=== PATIENT | female | born 1980 | race Caucasian/White ===

== ENCOUNTER 2016-07-05 22:55 | Emergency (ER) | payer MEDICAID ==
[~2016-07-05] VITALS: Ht 162.6 cm; Wt 100.0 kg
[~2016-07-05 22:55] MED LIST: AMOXICILLIN500 MG OR; AMOXICILLIN500 MG PO; ANUSOL HC25 MG RE; BACK & BODY EXT1 TAB PO; BENADRY2 EX; CEPHALEXIN500 MG PO; CIPRO250 MG PO; CIPRO500 MG; CIPRO500 MG OR; CIPROFLOXACN500 MG PO; DOXYCYC MONO100 M1 PO; FIORICE1 PO; FISH OIL1000 MG; FLAGYL500 MG PO; FLEXERIL OR; KEFLEX500 MG PO; LOMOTIL2.5 MG PO; LORTAB 10 PO; MEDDOSEPAK PO; MUPIROCIN2 % TOP; NO; NORCO1 TA2 PO; OMEPRAZOLE10 MG PO; OMEPRAZOLE20 M2 PO; ONDANSETRON4 MG PO; PRE-NATAL; PRENATABS OR; PROTONIX40 MG PO; ROBITUSSIN AC10 ML PO; ULTRAM50 M1 PO; ULTRAM50 MG OR; XYLOCAINE23 EX; ZOFRAN ODT4 MG PO
[2016-07-05] MEDS ORDERED: PROCTOFOAM HC10 GM RE (23:18)
[2016-07-05 23:40] VITALS: BP 141/69
== END 2016-07-05 23:40 | disposition home or self-care (01) | DRG 395 ==
LOC: ED 22:55
DX: K64.4 Residual hemorrhoidal skin tags (principal)

== ENCOUNTER 2016-10-25 09:48 | Emergency (ER) | payer MEDICAID ==
[~2016-10-25] VITALS: Ht 162.6 cm; Wt 80.0 kg
[~2016-10-25 09:48] MED LIST changes: +PROCTOFOAM HC10 GM RE
[2016-10-25 11:55] VITALS: BP 122/70
== END 2016-10-25 11:55 | disposition home or self-care (01) | DRG 556 ==
LOC: ED 09:48
PROC: 2W3EX1Z Immobilization of Right Hand using Splint (ICD-10-PCS; principal; 2016-10-25)
DX: M25.541 Pain in joints of right hand (principal); M25.531 Pain in right wrist

== ENCOUNTER 2016-12-05 15:02 | Emergency (ER) | payer MEDICAID ==
[~2016-12-05] VITALS: Ht 162.6 cm; Wt 80.0 kg
[2016-12-05 15:55] LABS: HEMATOCRIT 39.9 % (37.0-47.0); HEMOGLOBIN 13.5 g/dl (12.0-16.0); IMMATURE GRANULOCYTES 0.2 % (0.0-1.0); MEAN CORPUSCULAR HGB 29.1 pG CALC (26.0-32.0); MEAN CORPUSCULAR HGB CONC 33.8 g/L CALC (32.0-36.0); NEUT# 5.32 thou/uL (2.00-7.15); RED BLOOD COUNT 4.64 mill/uL (4.20-5.60); RED CELL DISTRI WIDTH 12.2 % (11.5-15.5)
[2016-12-05 15:55] LABS: URINE BILIRUBIN - DIPSTICK NEGATIVE (NEGATIVE); URINE BLOOD DIPSTICK TRACE-INTACT (NEGATIVE); URINE CLARITY CLEAR; URINE COLOR YELLOW; URINE GLUCOSE - DIPSTICK NEGATIVE (NEGATIVE); URINE KETONE NEGATIVE (NEGATIVE); URINE LEUK ESTERASE NEGATIVE (NEGATIVE); URINE NITRITE - DIPSTICK NEGATIVE (Negative); URINE PROTEIN - DIPSTICK NEGATIVE (NEG-TRACE); URINE UROBILINOGEN - DIPSTICK 0.2 E.U./dL (0.2)
[2016-12-05 16:12] LABS: ALBUMIN 4.3 g/dL (3.2-5.0); ALKALINE PHOSPHATASE 91 u/l (38-126); ANION GAP 17 (6-22 (CALC)); BILIRUBIN, TOTAL 0.6 mg/dL (0.0-1.4); BUN 14 mg/dL (7-17); BUN/CREATININE RATIO 21 (12-20 (CALC)); CALCIUM 9.4 mg/dL (8.4-10.2); CARBON DIOXIDE 28 mmol/l (22-30); CHLORIDE 104 mmol/l (95-108); CREATININE 0.6 mg/dL (0.5-1.0); GFR > 60 ML/MIN (>=60 (CALC)); GFR FOR AFR.AMER. > 60 ML/MIN (>=60 (CALC)); GLUCOSE 85 mg/dL (65-105); POTASSIUM 4.3 mmol/l (3.5-5.1); SGOT/AST 25 u/l (14-36); SGPT/ALT 42 u/l (9-52); SODIUM 145 mmol/l (137-146); TOTAL PROTEIN 7.5 g/dL (6.3-8.2)
[2016-12-05 16:21] LABS: MYOGLOBIN 17 ng/mL (0 - 62)
[2016-12-05] MEDS ORDERED: FLEXERIL PO (16:44)
[2016-12-05] MEDS ORDERED: TRAMADOL HYDROC50 MG PO (16:44)
[2016-12-05] MEDS ORDERED: MOTRIN800 MG PO (16:44)
[2016-12-05 17:06] VITALS: BP 118/64
== END 2016-12-05 17:06 | disposition home or self-care (01) | DRG 556 ==
LOC: ED 15:02
PROVIDERS: Emergency Medicine
DX: M79.1 Myalgia (principal)

== ENCOUNTER 2017-02-28 05:51 | Emergency (ER) | payer MEDICAID ==
[~2017-02-28] VITALS: Ht 162.6 cm; Wt 80.0 kg
[~2017-02-28 05:51] MED LIST changes: +FLEXERIL PO; +MOTRIN800 MG PO; +TRAMADOL HYDROC50 MG PO
[2017-02-28 06:43] LABS: HEMATOCRIT 48.5 % (37.0-47.0); HEMOGLOBIN 16.6 g/dl (12.0-16.0); IMMATURE GRANULOCYTES 0.4 % (0.0-1.0); MEAN CELL VOLUME 84.8 fL CALC (80.0-100.0); MEAN CORPUSCULAR HGB CONC 34.2 g/L CALC (32.0-36.0); NEUT# 14.85 thou/uL (2.00-7.15); RED BLOOD COUNT 5.72 mill/uL (4.20-5.60); RED CELL DISTRI WIDTH 11.9 % (11.5-15.5)
[2017-02-28 06:55] LABS: ALBUMIN 5.2 g/dL (3.2-5.0); ALKALINE PHOSPHATASE 121 u/l (38-126); ANION GAP 20 (6-22 (CALC)); BILIRUBIN, TOTAL 0.9 mg/dL (0.0-1.4); BUN 18 mg/dL (7-17); BUN/CREATININE RATIO 18 (12-20 (CALC)); CALCIUM 9.9 mg/dL (8.4-10.2); CARBON DIOXIDE 25 mmol/l (22-30); CHLORIDE 105 mmol/l (95-108); GFR FOR AFR.AMER. > 60 ML/MIN (>=60 (CALC)); GLUCOSE 163 mg/dL (65-105); POTASSIUM 4.3 mmol/l (3.5-5.1); SGOT/AST 26 u/l (14-36); SGPT/ALT 42 u/l (9-52); SODIUM 145 mmol/l (137-146); TOTAL PROTEIN 9.1 g/dL (6.3-8.2)
[2017-02-28 06:56] LABS: GFR > 60 ML/MIN (>=60 (CALC))
[2017-02-28 06:57] LABS: C. DIFFICILE TOXIN A&B NEGATIVE (NEGATIVE)
[2017-02-28 10:38] LABS: URINE BILIRUBIN - DIPSTICK NEGATIVE (NEGATIVE); URINE BLOOD DIPSTICK NEGATIVE (NEGATIVE); URINE COLOR YELLOW; URINE GLUCOSE - DIPSTICK NEGATIVE (NEGATIVE); URINE KETONE NEGATIVE (NEGATIVE); URINE LEUK ESTERASE NEGATIVE (NEGATIVE); URINE NITRITE - DIPSTICK NEGATIVE (Negative); URINE PH 6.5 (4.5-8.0); URINE PROTEIN - DIPSTICK NEGATIVE (NEG-TRACE); URINE SPECIFIC GRAVITY <=1.005; URINE UROBILINOGEN - DIPSTICK 0.2 E.U./dL (0.2)
[2017-02-28] MEDS ORDERED: ZITHROMAX250 MG PO (10:46)
[2017-02-28] MEDS ORDERED: ZOFRAN4 MG/TAB PO (10:47)
[2017-02-28 10:48] LABS: URINE CLARITY CLEAR
[2017-02-28 11:16] VITALS: BP 136/60
== END 2017-02-28 11:16 | disposition home or self-care (01) | DRG 373 ==
LOC: ED 05:51
PROVIDERS: Emergency Medicine
DX: A04.5 Campylobacter enteritis (principal); R10.33 Periumbilical pain; R11.2 Nausea with vomiting, unspecified; R19.7 Diarrhea, unspecified
CPT/HCPCS: Q9967

== ENCOUNTER 2018-01-19 16:18 | Emergency (ER) | payer MEDICAID ==
[~2018-01-19] VITALS: Ht 162.6 cm; Wt 80.2 kg
[~2018-01-19 16:18] MED LIST changes: +ZITHROMAX250 MG PO; +ZOFRAN4 MG/TAB PO
[2018-01-19] MEDS ORDERED: PROVENTIL HFA IN (18:00)
[2018-01-19 18:05] VITALS: BP 135/86
== END 2018-01-19 18:05 | disposition home or self-care (01) ==
LOC: ED 16:18
DX: R05 Cough (principal); R06.02 Shortness of breath; Z87.891 Personal history of nicotine dependence

== ENCOUNTER 2018-05-03 07:05 | Emergency (ER) | payer MEDICAID ==
[~2018-05-03] VITALS: Ht 162.6 cm; Wt 82.0 kg
[~2018-05-03 07:05] MED LIST changes: +PROVENTIL HFA IN
[2018-05-03] MEDS ORDERED: PROVENTIL108 MCG/AC IN (08:08)
[2018-05-03] MEDS ORDERED: ZITHROMAX250 MG PO (08:08)
[2018-05-03 08:31] VITALS: BP 129/86
== END 2018-05-03 08:30 | disposition home or self-care (01) ==
LOC: ED 07:05
DX: J40 Bronchitis, not specified as acute or chronic (principal); R05 Cough

== ENCOUNTER 2018-11-27 10:35 | Emergency (ER) | payer MEDICAID ==
[~2018-11-27] VITALS: Ht 162.6 cm; Wt 88.0 kg
[~2018-11-27 10:35] MED LIST changes: +PROVENTIL108 MCG/AC IN
[2018-11-27] MEDS ORDERED: AMOXICILLIN500 M2 PO (10:52)
[2018-11-27 11:01] VITALS: BP 126/79
[2018-11-28] MEDS ORDERED: [UNRECOGNIZED DRUG - OTHER] PO (06:33)
[2018-11-28] MEDS ORDERED: AMOXICILLIN/CL875 MG PO (08:31)
== END 2018-11-27 11:07 | disposition home or self-care (01) ==
LOC: ED 10:35
DX: J02.9 Acute pharyngitis, unspecified (principal)

== ENCOUNTER 2018-11-28 06:10 | Emergency (ER) | payer MEDICAID ==
[~2018-11-28] VITALS: Ht 162.6 cm; Wt 86.0 kg
[~2018-11-28 06:10] MED LIST changes: +AMOXICILLIN500 M2 PO
[2018-11-28] MEDS ORDERED: [UNRECOGNIZED DRUG - OTHER] PO (06:33)
[2018-11-28 08:23] VITALS: BP 120/68
[2018-11-28] MEDS ORDERED: AMOXICILLIN/CL875 MG PO (08:31)
== END 2018-11-28 08:45 | disposition home or self-care (01) ==
LOC: ED 06:10
DX: J02.9 Acute pharyngitis, unspecified (principal)

== ENCOUNTER 2020-05-31 10:12 | Emergency (ER) | payer MEDICAID ==
[~2020-05-31] VITALS: Ht 162.6 cm; Wt 89.5 kg
[~2020-05-31 10:12] MED LIST changes: +AMOXICILLIN/CL875 MG PO; +[UNRECOGNIZED DRUG - OTHER] PO
[2020-05-31 11:13] LABS: HEMATOCRIT 39.5 % (37.0-47.0); HEMOGLOBIN 13.1 g/dl (12.0-16.0); IMMATURE GRANULOCYTES 0.3 % (0.0-5.0); MEAN CELL VOLUME 84.8 fL CALC (80.0-100.0); MEAN CORPUSCULAR HGB 28.1 pG CALC (26.0-32.0); MEAN CORPUSCULAR HGB CONC 33.2 g/dL CAL (32.0-36.0); NEUT# 4.81 thou/uL (2.00-7.15); RED BLOOD COUNT 4.66 mill/uL (4.20-5.60); RED CELL DISTRI WIDTH 12.2 % (11.5-15.5)
[2020-05-31 11:23] LABS: URINE BILIRUBIN - DIPSTICK NEGATIVE (NEGATIVE); URINE BLOOD DIPSTICK NEGATIVE (NEGATIVE); URINE COLOR YELLOW; URINE GLUCOSE - DIPSTICK NEGATIVE (NEGATIVE); URINE KETONE NEGATIVE (NEGATIVE); URINE LEUK ESTERASE NEGATIVE (NEGATIVE); URINE PH 7.5 (4.5-8.0); URINE PROTEIN - DIPSTICK NEGATIVE (NEG-TRACE); URINE SPECIFIC GRAVITY 1.015; URINE UROBILINOGEN - DIPSTICK 0.2 E.U./dL (0.2)
[2020-05-31 11:24] LABS: ALBUMIN 4.4 g/dL (3.2-5.0); ALKALINE PHOSPHATASE 70 u/l (38-126); AMYLASE 71 u/l (30-110); ANION GAP 11 (6-22 (CALC)); BILIRUBIN, TOTAL 0.7 mg/dL (0.0-1.4); BUN 11 mg/dL (7-17); BUN/CREATININE RATIO 15 (12-20 (CALC)); CARBON DIOXIDE 29 mmol/l (22-30); CHLORIDE 102 mmol/l (95-108); CREATININE 0.7 mg/dL (0.5-1.0); GFR > 60 ML/MIN (>=60 (CALC)); GFR FOR AFR.AMER. > 60 ML/MIN (>=60 (CALC)); LIPASE 73 u/l (23-300); POTASSIUM 3.9 mmol/l (3.5-5.1); SGOT/AST 24 u/l (14-36); SODIUM 139 mmol/l (137-146); TOTAL PROTEIN 7.8 g/dL (6.3-8.2)
[2020-05-31 11:26] LABS: URINE NITRITE - DIPSTICK NEGATIVE (Negative)
[2020-05-31] MEDS ORDERED: MOTRIN800 MG PO (12:25)
[2020-05-31 13:23] VITALS: BP 133/64
== END 2020-05-31 13:00 | disposition home or self-care (01) ==
LOC: ED 10:12
DX: R10.11 Right upper quadrant pain (principal)

== ENCOUNTER 2020-07-23 18:09 | Emergency (ER) | payer MEDICAID ==
[~2020-07-23] VITALS: Ht 162.6 cm; Wt 90.9 kg
[2020-07-23 18:45] LABS: HEMATOCRIT 37.5 % (37.0-47.0); HEMOGLOBIN 12.4 g/dl (12.0-16.0); IMMATURE GRANULOCYTES 0.4 % (0.0-5.0); MEAN CELL VOLUME 85.6 fL CALC (80.0-100.0); MEAN CORPUSCULAR HGB 28.3 pG CALC (26.0-32.0); MEAN CORPUSCULAR HGB CONC 33.1 g/dL CAL (32.0-36.0); NEUT# 6.37 thou/uL (2.00-7.15); RED BLOOD COUNT 4.38 mill/uL (4.20-5.60); RED CELL DISTRI WIDTH 11.9 % (11.5-15.5)
[2020-07-23 18:59] LABS: ALKALINE PHOSPHATASE 100 u/l (38-126); ANION GAP 10 (6-22 (CALC)); BILIRUBIN, TOTAL 0.6 mg/dL (0.0-1.4); BUN 11 mg/dL (7-17); BUN/CREATININE RATIO 15 (12-20 (CALC)); CARBON DIOXIDE 29 mmol/l (22-30); CHLORIDE 103 mmol/l (95-108); CREATININE 0.7 mg/dL (0.5-1.0); GFR > 60 ML/MIN (>=60 (CALC)); GFR FOR AFR.AMER. > 60 ML/MIN (>=60 (CALC)); POTASSIUM 3.6 mmol/l (3.5-5.1); SGOT/AST 25 u/l (14-36); SODIUM 139 mmol/l (137-146); TOTAL PROTEIN 7.7 g/dL (6.3-8.2)
[2020-07-23 19:15] LABS: URINE BILIRUBIN - DIPSTICK NEGATIVE (NEGATIVE); URINE BLOOD DIPSTICK NEGATIVE (NEGATIVE); URINE COLOR YELLOW; URINE GLUCOSE - DIPSTICK NEGATIVE (NEGATIVE); URINE KETONE NEGATIVE (NEGATIVE); URINE LEUK ESTERASE NEGATIVE (NEGATIVE); URINE NITRITE - DIPSTICK NEGATIVE (Negative); URINE PROTEIN - DIPSTICK NEGATIVE (NEG-TRACE); URINE SPECIFIC GRAVITY 1.025; URINE UROBILINOGEN - DIPSTICK 0.2 E.U./dL (0.2)
[2020-07-23] MEDS ORDERED: ACYCLOVIR400 MG PO (19:47)
[2020-07-23 20:05] VITALS: BP 138/75
== END 2020-07-23 20:10 | disposition home or self-care (01) ==
LOC: ED 18:09
DX: B00.1 Herpesviral vesicular dermatitis (principal)

== ENCOUNTER 2021-07-29 17:57 | Emergency (ER) | payer MEDICAID ==
[~2021-07-29] VITALS: Ht 162.6 cm; Wt 99.8 kg
[~2021-07-29 17:57] MED LIST changes: +ACYCLOVIR400 MG PO
[2021-07-29 18:37] VITALS: BP 140/93
[2021-07-29 18:45] VITALS: BP 135/95
[2021-07-29 19:00] VITALS: BP 135/88
[2021-07-29 19:16] VITALS: BP 146/51
[2021-07-29] MEDS ORDERED: LEVOCETIRIZINE D5 MG PO (19:57)
[2021-07-29] MEDS ORDERED: FLONASE AL50 MCG/ACT IN (19:57)
[2021-07-29 20:20] VITALS: BP 146/51
== END 2021-07-29 20:25 | disposition home or self-care (01) ==
LOC: ED 17:57
DX: J40 Bronchitis, not specified as acute or chronic (principal); J30.2 Other seasonal allergic rhinitis; Z20.822 Contact with and (suspected) exposure to COVID-19

== ENCOUNTER 2021-08-11 08:18 | Emergency (ER) | payer MEDICAID ==
[~2021-08-11] VITALS: Ht 162.6 cm; Wt 95.0 kg
[~2021-08-11 08:18] MED LIST changes: +FLONASE AL50 MCG/ACT IN; +LEVOCETIRIZINE D5 MG PO
[2021-08-11 08:30] VITALS: BP 125/92
[2021-08-11 09:00] LABS: ALBUMIN 4.6 g/dL (3.2-5.0); ALKALINE PHOSPHATASE 104 u/l (38-126); ANION GAP 15 (6-22 (CALC)); BILIRUBIN, TOTAL 0.5 mg/dL (0.0-1.4); BUN 13 mg/dL (7-17); BUN/CREATININE RATIO 17 (12-20 (CALC)); CARBON DIOXIDE 25 mmol/l (22-30); CHLORIDE 104 mmol/l (95-108); CREATININE 0.8 mg/dL (0.5-1.0); GFR FOR AFR.AMER. > 60 ML/MIN (>=60 (CALC)); GFR OTHER RACES > 60 ML/MIN (>=60 (CALC)); LIPASE 54 u/l (23-300); POTASSIUM 4.3 mmol/l (3.5-5.1); SGOT/AST 39 u/l (14-36); SODIUM 139 mmol/l (137-146); TOTAL PROTEIN 8.8 g/dL (6.3-8.2)
[2021-08-11 09:02] LABS: HEMATOCRIT 46.4 % (37.0-47.0); HEMOGLOBIN 15.5 g/dl (12.0-16.0); IMMATURE GRANULOCYTES 0.5 % (0.0-5.0); MEAN CELL VOLUME 84.4 fL CALC (80.0-100.0); MEAN CORPUSCULAR HGB 28.2 pG CALC (26.0-32.0); MEAN CORPUSCULAR HGB CONC 33.4 g/dL CAL (32.0-36.0); NEUT# 12.13 thou/uL (2.00-7.15); RED BLOOD COUNT 5.5 mill/uL (4.20-5.60); RED CELL DISTRI WIDTH 11.8 % (11.5-15.5)
[2021-08-11 09:43] VITALS: BP 129/81
[2021-08-11 09:54] LABS: URINE BILIRUBIN - DIPSTICK NEGATIVE (NEGATIVE); URINE BLOOD DIPSTICK TRACE-INTACT (NEGATIVE); URINE COLOR YELLOW; URINE GLUCOSE - DIPSTICK NEGATIVE (NEGATIVE); URINE KETONE NEGATIVE (NEGATIVE); URINE LEUK ESTERASE NEGATIVE (NEGATIVE); URINE PH 5.5 (4.5-8.0); URINE PROTEIN - DIPSTICK TRACE mg/dL (NEG-TRACE); URINE SPECIFIC GRAVITY >=1.030; URINE UROBILINOGEN - DIPSTICK 0.2 E.U./dL (0.2)
[2021-08-11 09:56] LABS: URINE NITRITE - DIPSTICK NEGATIVE (Negative)
[2021-08-11 10:00] VITALS: BP 134/82
[2021-08-11 10:30] VITALS: BP 134/88
[2021-08-11 11:00] VITALS: BP 119/79
[2021-08-11] MEDS ORDERED: ZOFRAN4 MG/TAB PO (11:36)
[2021-08-11 11:48] VITALS: BP 119/79
== END 2021-08-11 11:58 | disposition home or self-care (01) ==
LOC: ED 08:18
PROVIDERS: Family Medicine
DX: A08.11 Acute gastroenteropathy due to Norwalk agent (principal); Z20.822 Contact with and (suspected) exposure to COVID-19

== ENCOUNTER 2022-02-06 07:50 | Emergency (ER) | payer MEDICAID ==
[~2022-02-06] VITALS: Ht 162.6 cm; Wt 97.2 kg
[2022-02-06 08:01] VITALS: BP 138/88
[2022-02-06 08:15] VITALS: BP 135/85
[2022-02-06 08:31] VITALS: BP 131/72
[2022-02-06] MEDS ORDERED: AMOX/K CLAV875 M1 PO (08:45)
[2022-02-06 08:57] VITALS: BP 131/72
== END 2022-02-06 09:16 | disposition home or self-care (01) ==
LOC: ED 07:50
DX: J02.0 Streptococcal pharyngitis (principal)
CPT/HCPCS: J1100

== ENCOUNTER 2022-04-30 10:11 | Emergency (ER) | payer MEDICAID ==
[~2022-04-30] VITALS: Ht 162.6 cm; Wt 100.0 kg
[2022-04-30] VITALS (8 sets, daily range): BP systolic 129–145; BP diastolic 78–107
[~2022-04-30 10:11] MED LIST changes: +AMOX/K CLAV875 M1 PO
[2022-04-30] MEDS ORDERED: PROAIR HFA IN ×2 (11:57→12:20)
[2022-04-30] MEDS ORDERED: ZPAK PO ×2 (11:57→12:20)
[2022-04-30] MEDS ORDERED: MEDDOSEPAK PO ×2 (11:57→12:20)
[2022-04-30] MEDS ORDERED: ZYRTEC10 MG PO ×2 (11:57→12:20)
== END 2022-04-30 12:18 | disposition home or self-care (01) ==
LOC: ED 10:11
DX: U07.1 COVID-19 (principal); R09.81 Nasal congestion; R05.9 Cough, unspecified; R50.9 Fever, unspecified; M79.10 Myalgia, unspecified site

== ENCOUNTER 2022-10-11 17:55 | Emergency (ER) | payer SELFPAY ==
[~2022-10-11] VITALS: Ht 162.6 cm; Wt 104.2 kg
[~2022-10-11 17:55] MED LIST changes: +PROAIR HFA IN; +ZPAK PO; +ZYRTEC10 MG PO
[2022-10-11 18:14] VITALS: BP 151/88
[2022-10-11 18:30] VITALS: BP 144/95
[2022-10-11 19:00] VITALS: BP 156/100
[2022-10-11 19:15] VITALS: BP 139/88
[2022-10-11 19:30] VITALS: BP 139/87
[2022-10-11 20:07] VITALS: BP 139/87
== END 2022-10-11 20:15 | disposition left against medical advice (07) | DRG 310 ==
LOC: ED 17:55
DX: R00.0 Tachycardia, unspecified (principal); Z53.29 Procedure and treatment not carried out because of patient's decision for other reasons

== ENCOUNTER 2022-11-10 07:10 | Emergency (ER) | payer SELFPAY ==
[~2022-11-10] VITALS: Ht 162.6 cm; Wt 103.2 kg
[2022-11-10] MEDS ORDERED: ATORVASTATIN CA20 MG PO (07:21)
[2022-11-10] MEDS ORDERED: AMOXICILLIN500 M2 PO (08:07)
[2022-11-10 08:19] VITALS: BP 136/103
== END 2022-11-10 08:09 | disposition home or self-care (01) | DRG 153 ==
LOC: ED 07:10
DX: J02.0 Streptococcal pharyngitis (principal); E66.9 Obesity, unspecified; Z20.822 Contact with and (suspected) exposure to COVID-19

== ENCOUNTER 2023-10-19 15:50 | Emergency (ER) | payer OTHER ==
[~2023-10-19] VITALS: Ht 162.6 cm; Wt 90.0 kg
[~2023-10-19 15:50] MED LIST changes: +ATORVASTATIN CA20 MG PO; +BENZONATATE200 MG PO
[2023-10-19 15:58] VITALS: BP 142/65
[2023-10-19 16:01] VITALS: BP 120/94
[2023-10-19 16:15] VITALS: BP 128/75
[2023-10-19] MEDS ORDERED: KETOROLAC TROMETHAMINE 30 MG/ML SDV IM ONE (16:40)
[2023-10-19] MEDS ORDERED: DEXAMETHASONE SOD. PHOSPHATE 10 MG/ML VIAL IM ONE (16:40)
[2023-10-19 16:46] VITALS: BP 123/85
[2023-10-19] MEDS ORDERED: NABUMETONE750 MG PO (17:34)
[2023-10-19] MEDS ORDERED: ORPHENADRINE100 MG PO (17:35)
[2023-10-19 17:44] VITALS: BP 123/85
== END 2023-10-19 17:44 | disposition home or self-care (01) | DRG 552 ==
LOC: ED 15:50
DX: M51.14 Intervertebral disc disorders with radiculopathy, thoracic region (principal); E78.5 Hyperlipidemia, unspecified

== ENCOUNTER 2024-05-10 11:59 | Emergency (ER) | payer SELFPAY ==
[~2024-05-10] VITALS: Ht 162.6 cm; Wt 77.1 kg
[~2024-05-10 11:59] MED LIST changes: +NABUMETONE750 MG PO; +ORPHENADRINE100 MG PO
[2024-05-10] MEDS ORDERED: SODIUM CHLORIDE 0.9% 1,000 ML IV ONE (12:10)
[2024-05-10 12:40] LABS: URINE BILIRUBIN - DIPSTICK Negative (NEGATIVE); URINE BLOOD DIPSTICK Trace-intact (NEGATIVE); URINE GLUCOSE - DIPSTICK Negative (NEGATIVE); URINE KETONE Negative (NEGATIVE); URINE LEUK ESTERASE Negative (NEGATIVE); URINE NITRITE - DIPSTICK Negative (Negative); URINE PH 6.5 (4.5-8.0); URINE PROTEIN - DIPSTICK Negative (NEG-TRACE); URINE UROBILINOGEN - DIPSTICK 0.2 E.U./dL (0.2)
[2024-05-10 12:41] LABS: BASO% 0.1 % (0-3); EOS% 1.3 % (0-8); IMMATURE GRANULOCYTES 0.2 % (0.0-5.0); LYMPH% 20.8 % (15-41); MEAN CELL VOLUME 86.3 fL CALC (80.0-100.0); MEAN CORPUSCULAR HGB 29.3 pG CALC (26.0-32.0); MEAN CORPUSCULAR HGB CONC 33.9 g/dL CAL (32.0-36.0); MONO% 10.9 % (2-13); NEUT# 5.48 thou/uL (2.00-7.15); NEUT% 66.7 % (42-76); RED BLOOD COUNT 4.61 mill/uL (4.20-5.60); RED CELL DISTRI WIDTH 11.7 % (11.5-15.5)
[2024-05-10 12:42] LABS: HEMATOCRIT 39.8 % (37.0-47.0); HEMOGLOBIN 13.5 g/dl (12.0-16.0)
[2024-05-10 12:43] LABS: URINE COLOR Yellow
[2024-05-10 12:52] LABS: ALBUMIN 4.3 g/dL (3.2-5.0); ALKALINE PHOSPHATASE 83 u/l (38-126); ANION GAP 11 (6-22 (CALC)); BILIRUBIN, TOTAL 0.7 mg/dL (0.02-1.3); BUN 8 mg/dL (7-17); BUN/CREATININE RATIO 12 (12-20 (CALC)); CARBON DIOXIDE 30 mmol/l (22-30); CHLORIDE 101 mmol/l (95-108); CREATININE 0.7 mg/dL (0.5-1.0); ESTIMATED GFR 109 ML/MIN (>=90 (CALC)); POTASSIUM 3.8 mmol/l (3.5-5.1); SGOT/AST 39 u/l (14-36); SODIUM 138 mmol/l (137-146); TOTAL PROTEIN 7.7 g/dL (6.3-8.2)
[2024-05-10 14:25] VITALS: BP 138/78
== END 2024-05-10 14:53 | disposition home or self-care (01) | DRG 948 ==
LOC: ED 11:59
PROVIDERS: Family Medicine
DX: R53.1 Weakness (principal); E78.5 Hyperlipidemia, unspecified; Z20.822 Contact with and (suspected) exposure to COVID-19

== ENCOUNTER 2024-05-29 10:46 | Emergency (ER) | payer SELFPAY ==
[~2024-05-29] VITALS: Ht 162.6 cm; Wt 79.0 kg
[2024-05-29 11:02] VITALS: BP 117/78
[2024-05-29] MEDS ORDERED: METHOCARBAMOL 500 MG/TAB PO ONE (11:05)
[2024-05-29] MEDS ORDERED: KETOROLAC TROMETHAMINE 30 MG/ML SDV IM ONE (11:05)
[2024-05-29 11:15] VITALS: BP 129/77
[2024-05-29 11:43] LABS: BASO% 0.1 % (0-3); EOS% 1.7 % (0-8); HEMATOCRIT 38.4 % (37.0-47.0); HEMOGLOBIN 12.9 g/dl (12.0-16.0); IMMATURE GRANULOCYTES 0.1 % (0.0-5.0); LYMPH% 25.5 % (15-41); MEAN CELL VOLUME 85.3 fL CALC (80.0-100.0); MEAN CORPUSCULAR HGB 28.7 pG CALC (26.0-32.0); MEAN CORPUSCULAR HGB CONC 33.6 g/dL CAL (32.0-36.0); MONO% 8.8 % (2-13); NEUT# 4.48 thou/uL (2.00-7.15); NEUT% 63.8 % (42-76); RED BLOOD COUNT 4.5 mill/uL (4.20-5.60); RED CELL DISTRI WIDTH 11.7 % (11.5-15.5)
[2024-05-29 11:57] LABS: ALBUMIN 4.2 g/dL (3.2-5.0); BILIRUBIN, TOTAL 0.7 mg/dL (0.02-1.3); CREATININE 0.6 mg/dL (0.5-1.0); POTASSIUM 4.2 mmol/l (3.5-5.1); TOTAL PROTEIN 7.3 g/dL (6.3-8.2)
[2024-05-29] MEDS ORDERED: MORPHINE SULFATE 4 MG/ML VIAL IV ONE (12:00)
[2024-05-29] MEDS ORDERED: ONDANSETRON HCl 4 MG/2 ML SDV IV ONE (12:00)
[2024-05-29] MEDS ORDERED: MORPHINE SULFATE 4 MG/ML VIAL IM ONE (12:30)
[2024-05-29] MEDS ORDERED: ONDANSETRON 4 MG/TAB ODT PO ONE (12:30)
[2024-05-29 12:40] LABS: URINE BILIRUBIN - DIPSTICK Negative (NEGATIVE); URINE BLOOD DIPSTICK Negative (NEGATIVE); URINE GLUCOSE - DIPSTICK Negative (NEGATIVE); URINE KETONE Negative (NEGATIVE); URINE LEUK ESTERASE Negative (NEGATIVE); URINE NITRITE - DIPSTICK Negative (Negative); URINE PROTEIN - DIPSTICK Trace mg/dL (NEG-TRACE); URINE UROBILINOGEN - DIPSTICK 0.2 E.U./dL (0.2)
[2024-05-29 12:43] LABS: URINE COLOR Yellow
[2024-05-29] MEDS ORDERED: FLEXERIL5 M1 PO (14:02)
[2024-05-29] MEDS ORDERED: EC-NAPROXEN500 MG PO (14:02)
[2024-05-29 14:12] VITALS: BP 129/77
== END 2024-05-29 14:13 | disposition home or self-care (01) | DRG 552 ==
LOC: ED 10:46
PROVIDERS: Family Medicine
DX: M54.9 Dorsalgia, unspecified (principal); R10.12 Left upper quadrant pain